=== PATIENT | male | born 1955 | race Caucasian/White ===

== ENCOUNTER 2016-10-08 20:02 | Emergency (ER) | payer OTHER ==
[~2016-10-08] VITALS: Wt 89.5 kg
--- NOTE | 2016-10-08 21:56 | ERD ---
ER Documentation Chief Complaint Date/Time DATE: 10/08/16 TIME: 21:55 Chief Complaint Right back pain started one week ago HPI 61-year-old male presents to emergency department for complaints of right-sided back pain after falling 1 week ago. Patient fell, landed on the right side of the back, described the pain as throbbing pain, 6/10 scale, worse upon movement accompanied with muscle spasms. Patient denies any incontinence. Patient denies any fever or chills. Patient denies any nausea vomiting abdominal pain. Patient denies hematuria or dysuria. Patient did not take any medication stop her symptoms. ROS All systems reviewed and are negative except as per history of present illness. Medications Home Meds Reported Medications [none] Unknown Strength No Conflict Check 10/08/16 Allergies Allergies: Coded Allergies: No Known Allergy (Unverified , 10/08/16) PMhx/Soc Medical and Surgical Hx: pt denies Medical Hx, pt denies Surgical Hx History of Surgery: No Anesthesia Reaction: No Hx Neurological Disorder: No Hx Respiratory Disorders: No Hx Cardiac Disorders: No Hx Psychiatric Problems: No Hx Miscellaneous Medical Probl: No Hx Alcohol Use: No Hx Tobacco Use: No Smoking Status: Light tobacco smoker FmHx Family History: No coronary disease, No diabetes, No other Physical Exam Vitals Vital Signs Date Time Temp Pulse Resp B/P Pulse Ox O2 Delivery O2 Flow Rate FiO2 10/08/16 20:48 98.3 64 20 142/78 98 Physical Exam GENERAL: The patient is well developed and appropriate for usual state of health, in no apparent distress. CHEST: Clear to auscultation bilaterally. There are no rales, wheezes or rhonchi. HEART: Regular rate and rhythm. No murmurs, clicks, rubs or gallops. No S3 or S4. ABDOMEN: Soft, nontender and nondistended. Good bowel sounds. No rebound or guarding. No gross peritonitis. No gross organomegaly or masses. No You sign or McBurney point tenderness. BACK: No midline or flank tenderness. Muscle spasms noted in the paraspinal aspect of the right back, able to do full range of motion without any restriction EXTREMITIES: Equal pulses bilaterally. There is no peripheral clubbing, cyanosis or edema. No focal swelling or erythema. Full range of motion. Grossly neurovascularly intact. NEURO: Alert and oriented. Cranial nerves 2-12 intact. Motor strength in all 4 extremities with 5/5 strength. Sensation grossly intact. Normal speech and gait. SKIN: There is no apparent rash or petechia. The skin is warm and dry. HEMATOLOGIC AND LYMPHATIC: There is no evidence of excessive bruising or lymphedema. No gross cervical, axillary, or inguinal lymphadenopathy. Results 24 hrs PROCEDURE: CT Lumbar Spine without contrast. CLINICAL INDICATION: Low back pain. TECHNIQUE: CT of the lumbar spine without contrast was performed. Axial images were obtained through the lumbar spine and reformatted at 2.5 mm slice thickness. Coronal and sagittal images were reformatted. The CTDIvol = 22.06 mGy and DLP = 724.08 mGy-cm. COMPARISON: None available FINDINGS: Vertebral bodies: There is preservation of lordosis, stature, mineralization and attenuation of the five eiu-dii-wnhculb levels. Moderate multilevel anterior spondylosis is present most pronounced at the lower thoracic and upper lumbar levels and asymmetric to the right Conus medularis region: Normal in attenuation and location terminating at the L1 level. T12-L1: No discogenic abnormality of significance is seen. Moderate anterior spondylosis asymmetric to the right is present. There is no facet arthropathy. The central canal is patent. There is no evidence for foraminal stenosis. L1-L2: No discogenic abnormality of significance is seen. Mild anterior spondylosis to the right is present. There is no facet arthropathy. The ligamentum flava are normal in thickness. The central canal is patent. There is no evidence for foraminal stenosis. L2-L3: No discogenic abnormality of significance is seen. There is no facet arthropathy. The ligamentum flava are normal in thickness. The central canal is patent. There is no evidence for foraminal stenosis. L3-L4: Preservation of disk stature with trace disk bulging but no evidence of protrusion. There is no facet arthropathy. The ligamentum flava are normal in thickness. The central canal is patent. There is no evidence for foraminal stenosis. L4-L5: Mild annular disk bulging with faint calcification of the posterior annulus, disk material slightly asymmetric to the right with mild right lateral recess stenosis. There is no facet arthropathy. The ligamentum flava are normal in thickness. The central canal is patent. There is no evidence for foraminal stenosis. L5-S1: Mild loss of disk stature with osteophyte and disk complex extending into the foramina. Mild bilateral facet arthropathy is present. The ligamentum flava are normal in thickness. The central canal is patent. Moderate to severe right and moderate left foraminal stenosis from the osteophyte and disk complex are present. There is a trace anterolisthesis. Sacrum and sacroiliac joints: No abnormalities are identified, the joints are normal and symmetric. None spine related findings: No abnormalities are demonstrated. RPTAT:HJJR IMPRESSION: 1. Degenerative disk narrowing greatest at L5-S1 with osteophyte and disk complex causing significant right greater than left foraminal stenosis without central canal compromise, trace anterolisthesis at L5-S1 is present related to mild facet arthropathy 2. Asymmetric disk bulging to the right at L4-5 with minimal right lateral recess stenosis but no significant central canal or foraminal narrowing. 3. Moderate anterior right spondylosis at the thoracolumbar junction. Physician Rachel Date Time Electronically viewed and signed by Physician Rachel on 10/08/2016 22:11 JR/ CC: MIKEY PABLO. [employer] Procedures/MDM Medical Decision Making: Patient's pain is most likely consistent with a back strain and degenerative disc disease. There is no suspicion for neurovascular compromise. Patient has intact sensation and circulation of the affected extremity and distal extremities. No incontinence, no suspicion for cauda equina syndrome, no saddle anesthesia, no symptoms of any acute bacterial infection, no symptoms of any perirectal abscesses, pilonidal cyst.There is low suspicion for septic arthritis. Patient does not have any fever. No symptoms of any aortic dissection or aortic aneurysm. Radiology exam not indicated at this time. Disposition: Home. Patient is given prescription for ibuprofen for mild to moderate pain, Frederick for severe pain, Flexeril for muscle spasm. Patient was advised to avoid heavy lifting , apply warm compresses on affected area. Patient was advised that if symptoms are worse, numbness, tingling, high fever, unable to move joint, worsening symptoms, to return to emergency department immediately. Otherwise, patient is advised to follow up with the primary care doctor in 5-7 days for reevaluation of symptoms. Departure Diagnosis: Primary Impression: Back pain Back pain location: low back pain Chronicity: unspecified Back pain laterality: right Sciatica presence: unspecified whether sciatica present Qualified Code: M54.5 - Right low back pain, unspecified chronicity, with sciatica presence unspecified Additional Impression: Degenerative disc disease Spinal region: lumbar Qualified Code: M51.36 - Degeneration of intervertebral disc of lumbar region Condition: Stable Patient Instructions: Back Pain (Acute Or Chronic), Degenerative Disk Disease Additional Instructions: Patient is given prescription for ibuprofen for mild to moderate pain, Frederick for severe pain, Flexeril for muscle spasm. Patient was advised to avoid heavy lifting , apply warm compresses on affected area. Patient was advised that if symptoms are worse, numbness, tingling, high fever, unable to move joint, worsening symptoms, to return to emergency department immediately. Otherwise, patient is advised to follow up with the primary care doctor in 5-7 days for reevaluation of symptoms. MIKEY PABLO [employer]ER Oct 08, 2016 21:56
--- NOTE | 2016-10-08 22:11 | RADRPT ---
PROCEDURE: CT Lumbar Spine without contrast. CLINICAL INDICATION: Low back pain. TECHNIQUE: CT of the lumbar spine without contrast was performed. Axial images were obtained thro [facility] the lumbar spine and reformatted at 2.5 mm slice thickness. Coronal and sagittal images were ref ormatted. The CTDIvol = 22.06 mGy and DLP = 724.08 mGy-cm. COMPARISON: None available FINDINGS: Vertebral bodies: There is preservation of lordosis, stature, mineralization and attenuation of the five ymw-pep-dkafwvj levels. Moderate multilevel anterior spondylosis is present most pronounced at the lower thoracic and upper lumbar levels and asymmetric to the right Conus medularis region: Normal in attenuation and location terminating at the L1 level. T12-L1: No discogenic abnormality of significance is seen. Moderate anterior spondylosis asymmetric to the right is present. There is no facet arthropathy. The central canal is patent. There is no evidence for foraminal stenosis. L1-L2: No discogenic abnormality of significance is seen. Mild anterior spondylosis to the right is present. There is no facet arthropathy. The ligamentum flava are normal in thickness. The central canal is patent. There is no evidence for foraminal stenosis. L2-L3: No discogenic abnormality of significance is seen. There is no facet arthropathy. The ligamen gagandeep flava are normal in thickness. The central canal is patent. There is no evidence for foraminal stenosis. L3-L4: Preservation of disk stature with trace disk bulging but no evidence of protrusion. There is no facet arthropathy. The ligamentum flava are normal in thickness. The central canal is patent. T here is no evidence for foraminal stenosis. L4-L5: Mild annular disk bulging with faint calcification of the posterior annulus, disk material sl ightly asymmetric to the right with mild right lateral recess stenosis. There is no facet arthropath y. The ligamentum flava are normal in thickness. The central canal is patent. There is no evidence for foraminal stenosis. L5-S1: Mild loss of disk stature with osteophyte and disk complex extending into the foramina. Mild bilateral facet arthropathy is present. The ligamentum flava are normal in thickness. The central c anal is patent. Moderate to severe right and moderate left foraminal stenosis from the osteophyte a nd disk complex are present. There is a trace anterolisthesis. Sacrum and sacroiliac joints: No abnormalities are identified, the joints are normal and symmetric. None spine related findings: No abnormalities are demonstrated. RPTAT:HJJR IMPRESSION: 1. Degenerative disk narrowing greatest at L5-S1 with osteophyte and disk complex causing significa nt right greater than left foraminal stenosis without central canal compromise, trace anterolisthesi s at L5-S1 is present related to mild facet arthropathy 2. Asymmetric disk bulging to the right at L4-5 with minimal right lateral recess stenosis but no s ignificant central canal or foraminal narrowing. 3. Moderate anterior right spondylosis at the thoracolumbar junction. Physician Rachel Date Time Electronically viewed and signed by Physician Rachel on 10/08/2016 22:11 JR/
[2016-10-08] MEDS ORDERED: HYDR-906 PO (22:29)
[2016-10-08] MEDS ORDERED: IBUP-1542 PO (22:29)
[2016-10-08] MEDS ORDERED: CYCL-319 PO (22:29)
[2016-10-08 22:46] VITALS: BP 143/81; PULSE 60; RESP 17; TEMP 98.9
== END 2016-10-08 22:47 | disposition home or self-care (01) ==
LOC: FTE 20:02
DX: M54.5 Low back pain (principal); M51.36 Other intervertebral disc degeneration, lumbar region; F17.210 Nicotine dependence, cigarettes, uncomplicated
CPT/HCPCS: 72131

== ENCOUNTER 2016-10-13 13:15 | Emergency (ER) | payer OTHER ==
[~2016-10-13] VITALS: Ht 167.6 cm; Wt 88.0 kg
[~2016-10-13 13:15] MED LIST: CYCL-319 PO; HYDR-906 PO; IBUP-1542 PO
[2016-10-13 13:19] VITALS: Ht 167.6 cm; Wt 88.0 kg
[2016-10-13] MEDS ORDERED: KETOROLAC 30 MG INJ IV STA (13:30)
[2016-10-13] MEDS ORDERED: ONDANSETRON 4 MG INJ IV STA (13:30)
[2016-10-13] MEDS ORDERED: SOD CHLORIDE 0.9% 1,000 ML IV STA (13:30)
[2016-10-13] MEDS ORDERED: HYDROmorphONE 1 MG/ML SYG IV STA (13:30)
[2016-10-13 13:58] LABS: ADD SCAN DIFF NO
[2016-10-13 14:00] LABS: EOSINOPHILS # 0.2 10^3/ul (0.0-0.5); EOSINOPHILS % 3.6 % (0.0-7.0); HEMATOCRIT 40.8 % (42.0-52.0); HEMOGLOBIN 13.9 g/dl (14.0-18.0); LYMPHOCYTES # 1.5 10^3/ul (0.8-2.9); LYMPHOCYTES % 35.2 % (15.0-51.0); MEAN CORPUSCULAR HEMOGLOBIN 31.1 pg (29.0-33.0); MEAN CORPUSCULAR HGB CONC 34.1 g/dl (32.0-37.0); MEAN CORPUSCULAR VOLUME 91.3 fl (82.0-101.0); MEAN PLATELET VOLUME 10.2 fl (7.4-10.4); MONOCYTE # 0.3 10^3/ul (0.3-0.9); MONOCYTES % 8.2 % (0.0-11.0); NEUTROPHIL # 2.2 10^3/ul (1.6-7.5); NEUTROPHILS % 51.8 % (39.0-77.0); PLATELET COUNT 196 10^3/UL (140-415); RED BLOOD COUNT 4.47 10^6/ul (4.70-6.10); RED CELL DISTRIBUTION WIDTH 13.2 % (11.5-14.5); WHITE BLOOD COUNT 4.2 10^3/ul (4.8-10.8)
[2016-10-13 14:18] LABS: ADD UMIC YES; URINE BILIRUBIN (Dip) NEGATIVE (NEGATIVE); URINE BLOOD (Dip) TRACE (NEGATIVE); URINE COLOR LT. YELLOW (YELLOW); URINE GLUCOSE (Dip) NEGATIVE (NEGATIVE); URINE KETONES (Dip) NEGATIVE (NEGATIVE); URINE LEUKOCYTE ESTERASE (Dip) NEGATIVE (NEGATIVE); URINE NITRITE (Dip) NEGATIVE (NEGATIVE); URINE TOTAL PROTEIN (Dip) NEGATIVE (NEGATIVE); URINE UROBILINOGEN (Dip) 0.2 E.U./dL (0.1-1.0)
[2016-10-13 14:21] LABS: ALBUMIN 4.7 g/dl (3.3-4.9); ALBUMIN/GLOBULIN RATIO 1.62; BILIRUBIN,INDIRECT 0.3 mg/dl (0-1.1); BILIRUBIN,TOTAL 0.3 mg/dl (0.2-1.3); CALCIUM 9.3 mg/dl (8.4-10.2); CREATININE 0.83 mg/dl (0.61-1.24); POTASSIUM 4.1 mmol/L (3.5-5.1); TOTAL PROTEIN 7.6 g/dl (6.1-8.1)
--- NOTE | 2016-10-13 14:26 | RADRPT ---
PROCEDURE: CT abdomen and pelvis without contrast. CLINICAL INDICATION: Right flank pain, right upper quadrant abdominal pain TECHNIQUE: CT scan of the abdomen and pelvis without contrast was performed on the CT scanner. Th e patient was scanned without intravenous contrast. Oral contrast was not administered. 3-D post p rocessing coronal and sagittal re-formations were obtained from the axial source images. Exam D L P [address] D V O L 13 mgy. This exam is limited due to lack of intravenous contrast. One or more of the following dose reduction techniques were used: Automated exposure control Adjustment of the mA and/or kV according to patient size. Use of iterative reconstruction technique. COMPARISON: CT lumbar spine October 08, 2016 FINDINGS: CT abdomen: There is a 1 cm, micro lobulated, left medial basilar pulmonary nodule. Pulmonary follow-up is sugg ested. The liver is normal in size and density without focal mass or intrahepatic biliary dilatation. The spleen is normal in size and homogeneous in density. The stomach is partially collapsed, but is nehal ssly unremarkable. The pancreas as visualized is normal. The gallbladder and biliary tree are unre markable and there is no evidence for biliary dilatation. The adrenal glands are symmetric and normal. The kidneys are symmetrically unremarkable as well. N o renal calculus or obstructive uropathy or suspicious, mass lesion is seen. There is a benign, 2.5 cm right renal cyst. The aorta is of normal caliber. There is no retroperitoneal lymphadenopathy. The emily hepatis murtaza on is clear. The bowel and mesentery, as visualized, are equally unremarkable. CT pelvis: The small bowel loops situated within the pelvis are unremarkable. The appendix is normal. The sig moid colon and rectum are all unremarkable. No mass, lymphadenopathy, or free fluid is seen. No ac sherron inflammation is seen. Moderate Colonic constipation is present. The pelvic organs are normal. The pelvic sidewalls and inguinal regions are clear. There is diffuse degenerative disk disease of the lumbar spine. No osteolytic or osteoblastic lesion is detected. IMPRESSION: 1. No findings of renal, ureteral, or bladder stone. No findings of bowel perforation, obstruction , or acute inflammation. Moderate constipation. 2. Incidentally noted 10 mm left medial basal pulmonary nodule, and benign, right renal cyst. Pulm onary follow-up is suggested. RPTAT: QQ .Ping Galo MD, MD Date Time Electronically viewed and signed by .Ping Galo MD, MD on 10/13/2016 14:26 .F/
--- NOTE | 2016-10-13 14:46 | RADRPT ---
PROCEDURE: XR Chest. CLINICAL INDICATION: chest pain TECHNIQUE: Single frontal view of the chest was obtained COMPARISON: None FINDINGS: The heart and mediastinum are within normal limits. There is a mild patchy right lower lobe infiltrate. There is no pleural effusion or pneumothorax. RPTAT: AA IMPRESSION: Mild patchy right lower lobe infiltrate. .Juan Antonio Agarwal MD, MD Date Time Electronically viewed and signed by .Juan Antonio Agarwal MD, MD on 10/13/2016 14:46 .S/
[2016-10-13] MEDS ORDERED: IBUP-1542 PO (14:53)
[2016-10-13] MEDS ORDERED: AZIT250T94 PO (14:53)
[2016-10-13] MEDS ORDERED: AZITHROMYCIN 250 MG TAB PO ONE (15:00)
[2016-10-13 15:18] VITALS: BP 111/69; PULSE 73; RESP 17
--- NOTE | 2016-10-13 15:30 | ERD ---
ER Documentation Chief Complaint Date/Time DATE: 10/13/16 TIME: 15:28 Chief Complaint Complains of right flank pain x 1 week HPI Patient is a 61-year-old male with prostate issues who presents with right- sided flank pain. He said that he had "an accident" a few weeks ago where he fell down a flight of stairs. He has had constant pain since. He has had no treatment for the pain as of yet. He was seen in the emergency department a few days ago and had a CT scan of the lumbar spine and was discharged home. He said that he goes to a local clinic for his care. ROS All systems reviewed and are negative except as per history of present illness. Medications Home Meds Active Scripts Ibuprofen* (Motrin*) 600 Mg Tab, 600 MG PO Q8, #30 TAB Prov:ANTHONY MARTINEZ MD 10/13/16 Azithromycin* (Zithromax*) 250 Mg Tablet, 250 MG PO DAILY for 4 Days, TAB Prov:ANTHONY MARTINEZ MD 10/13/16 Discontinued Reported Medications [none] Unknown Strength No Conflict Check 10/08/16 Discontinued Scripts Hydrocodone/Acetaminophen ([place] 5-325 Tablet) 1 Each Tablet, 1 TAB PO Q6H Y for SEVERE PAIN LEVEL 7-10, #20 TAB Prov:MIKEY PABLO NP 10/08/16 Cyclobenzaprine Hcl* (Cyclobenzaprine Hcl*) 10 Mg Tablet, 10 MG PO TID, #15 TAB Prov:MIKEY PABLO [employer] 10/08/16 Ibuprofen* (Motrin*) 600 Mg Tab, 600 MG PO Q6H Y for PAIN AND OR ELEVATED TEMP, #30 TAB Prov:MIKEY PABLO [employer] 10/08/16 Allergies Allergies: Coded Allergies: No Known Allergy (Unverified , 10/13/16) PMhx/Soc Medical and Surgical Hx: pt denies Surgical Hx History of Surgery: No Anesthesia Reaction: No Hx Neurological Disorder: No Hx Respiratory Disorders: No Hx Cardiac Disorders: No Hx Psychiatric Problems: No Hx Miscellaneous Medical Probl: Yes (right knee pain, prostate) Hx Alcohol Use: No Hx Tobacco Use: No Smoking Status: Never smoker FmHx Family History: No diabetes Physical Exam Vitals Vital Signs Date Time Temp Pulse Resp B/P Pulse Ox O2 Delivery O2 Flow Rate FiO2 6/11/17 15:18 73 17 111/69 100 Room Air 10/13/16 14:29 64 17 113/60 98 Room Air 10/13/16 13:19 97.3 83 20 130/71 97 Physical Exam Const: No acute distress Head: Atraumatic Eyes: Normal Conjunctiva ENT: Normal External Ears, Nose and Mouth. Neck: Full range of motion..~ No meningismus. Resp: Clear to auscultation bilaterally Cardio: Regular rate and rhythm, no murmurs Abd: Soft, non tender, non distended. Normal bowel sounds Skin: No petechiae or rashes Back: No midline or flank tenderness Ext: No cyanosis, or edema Neur: Awake and alert Psych: Normal Mood and Affect Result Diagram: 10/13/16 1330 10/13/16 1330 Results 24 hrs Laboratory Tests Test 10/13/16 13:30 White Blood Count 4.210^3/ul Red Blood Count 4.4710^6/ul Hemoglobin 13.9g/dl Hematocrit 40.8% Mean Corpuscular Volume 91.3fl Mean Corpuscular Hemoglobin 31.1pg Mean Corpuscular Hemoglobin Concent 34.1g/dl Red Cell Distribution Width 13.2% Platelet Count 57020^3/UL Mean Platelet Volume 10.2fl Neutrophils % 51.8% Lymphocytes % 35.2% Monocytes % 8.2% Eosinophils % 3.6% Basophils % 1.0% Nucleated Red Blood Cells % 0.0/100WBC Neutrophils # 2.210^3/ul Lymphocytes # 1.510^3/ul Monocytes # 0.310^3/ul Eosinophils # 0.210^3/ul Basophils # 0.010^3/ul Nucleated Red Blood Cells # 0.010^3/ul Urine Color LT. YELLOW Urine Clarity CLEAR Urine pH 6.0 Urine Specific [place] 1.025 Urine Ketones NEGATIVE Urine Nitrite NEGATIVE Urine Bilirubin NEGATIVE Urine Urobilinogen 0.2 E.U./dL Urine Leukocyte Esterase NEGATIVE Urine Microscopic RBC 5-10/HPF Urine Microscopic WBC 2-5/HPF Urine Epithelial Cells FEW Urine Calcium Oxalate Crystals MANY Urine Hemoglobin TRACE Urine Glucose NEGATIVE% Urine Total Protein NEGATIVE Sodium Level 144mmol/L Potassium Level 4.1mmol/L Chloride Level 109mmol/L Carbon Dioxide Level 25mmol/L Anion Gap 14 Blood Urea Nitrogen 21mg/dl Creatinine 0.83mg/dl Glucose Level 132mg/dl Calcium Level 9.3mg/dl Total Bilirubin 0.3mg/dl Direct Bilirubin 0.00mg/dl Indirect Bilirubin 0.3mg/dl Aspartate Amino Transf (AST/SGOT) 31IU/L Alanine Aminotransferase (ALT/SGPT) 41IU/L Alkaline Phosphatase 125IU/L Total Protein 7.6g/dl Albumin 4.7g/dl Globulin 2.90g/dl Albumin/Globulin Ratio 1.62 Lipase 38U/L Current Medications Medications (Trade) Dose Ordered Sig/Aureliano Route PRN Reason Start Time Stop Time Status Last Admin Dose Admin Sodium Chloride (NS) 1,000 ml @ 1,000 mls/hr Q1H STAT IV 10/13/16 13:30 10/13/16 14:29 DC 10/13/16 13:56 Hydromorphone HCl (Dilaudid) 1 mg ONCE STAT IV 10/13/16 13:30 10/13/16 13:31 DC Ondansetron HCl (Zofran Inj) 4 mg ONCE STAT IV 10/13/16 13:30 10/13/16 13:31 DC 10/13/16 13:55 Ketorolac Tromethamine (Toradol) 30 mg ONCE STAT IV 10/13/16 13:30 10/13/16 13:31 DC 10/13/16 13:55 Azithromycin (Zithromax) 500 mg ONCE ONCE PO 10/13/16 15:00 10/13/16 15:01 DC 10/13/16 15:18 Procedures/MDM Chest x-ray shows right lower lobe pneumonia per radiology. CT scan of the abdomen and pelvis shows no surgical process per radiology. Patient is a 61-year-old male presents with right-sided chest and flank pain. He was found to have a right lower lobe pneumonia and will be treated with 5 days of Zithromax. The first dose was given in the emergency department. Laboratory studies were basically normal and the CT scan shows no sign of serious traumatic process. I doubt cholecystitis, pancreatitis, appendicitis, or bowel obstruction. The patient will be discharged home with a prescription for Zithromax and ibuprofen. He will need to follow-up with his primary doctor within 24-48 hours for reevaluation. Departure Diagnosis: Primary Impression: Pneumonia Pneumonia type: due to unspecified organism Laterality: right Lung location : lower lobe of lung Qualified Code: J18.1 - Pneumonia of right lower lobe due to infectious organism Additional Impression: Flank pain Condition: Fair Patient Instructions: Pneumonia (Adult) Additional Instructions: Llame al doctor MAANA y chaz dwight KEILY PARA DENTRO DE 1-2 MERCHANT.Dgale a la secretaria que nosotros le instruimos hacer esta keily.Avise o llame si [place] condicin se empeora antes de la keily. Regresa aqui si peor o no mejor. ANTHONY MARTINEZ MD Oct 13, 2016 15:30
== END 2016-10-13 15:28 | disposition home or self-care (01) ==
LOC: E/R 13:15
DX: J18.1 Lobar pneumonia, unspecified organism (principal)
CPT/HCPCS: 36415; 71010; 74176; 80053; 81001; 83690; 85025; 96361; 96374; 96375; J1170; J1885; J2405; J7030; Z7502; Z7610